=== PATIENT | female | born 1940 | race Hispanic/Latino ===

== ENCOUNTER 2024-07-25 14:08 | Outpatient (CLI) | payer MEDICARE, OTHER | END 2024-07-25 14:09 | disposition home or self-care (01) | LOC: CSHMRI 14:08 | PROVIDERS: ATTEND Student in an Organized Health Care Education/Training Program | DX: M12.812 Other specific arthropathies, not elsewhere classified, left shoulder (principal); M75.82 Other shoulder lesions, left shoulder; M94.8X1 Other specified disorders of cartilage, shoulder; M25.412 Effusion, left shoulder ==